=== PATIENT | female | born 1985 | race Caucasian/White ===

== ENCOUNTER 2016-06-14 12:28 | Inpatient (IN) | payer OTHER ==
[~2016-06-14] VITALS: Ht 160 cm; Wt 80.3 kg
[2016-06-14 12:56] VITALS: BP 112/72
[2016-06-14 13:45] LABS: ABSOLUTE BASOPHIL COUNT 0 /CUMM (0.0-0.2); ABSOLUTE EOSINOPHIL COUNT 0.1 /CUMM (0.0-0.7); ABSOLUTE GRANULOCYTE CT 7.9 /CUMM (1.4-6.5); ABSOLUTE MONOCYTE COUNT 0.8 /CUMM (0.10-0.60); BASOPHIL % 0.2 % (0.0-2.0); EOSINOPHIL % 0.8 % (0-5); GRANULOCYTE % 73.7 % (42.2-75.2); HEMATOCRIT 37.2 % (37-47); MEAN CORPUSCULAR HGB 29.4 PG (27.0-31.0); MEAN CORPUSCULAR HGB CONC 33.8 G/DL (33.0-37.0); MEAN CORPUSCULAR VOLUME 86.8 FL (81.0-99.0); MEAN PLATELET VOLUME 8.6 FL (7.4-10.4); PLATELET COUNT 225 /CUMM (130-400); RBC DISTRIBUTION WIDTH 13.1 % (11.5-14.5); RED BLOOD CELL CT 4.29 /CUMM (4.20-5.40); WHITE BLOOD CELL COUNT 10.7 /CUMM (4.8-10.8)
--- NOTE | 2016-06-14 14:46 | History & Physical ---
See Addendum General Information and HPI MD Statement: I have seen and personally examined YOCASTA ACKERMAN and documented this H&P. The patient is a 30 year old female at [40+6] weeks and [] days gestation who presented with a chief complaint of [sent from office for variables on NST]. Source of Information: patient Exam Limitations: no limitations History of Present Illness: 30 year old @ 40+6 weeks presents from office for prolonged monitoring. Pt had been seen at [facility] overnight for labor eval and was 2cm. FHR tracing noted to be Cat 1. Pt was sent home this am and presented to office today at which time BPP 8/8 and NST reactive but variables noted. Pt referred for prolonged monitoring. During evaluation . several moderate variables were audible to 90 BPM x <1min. 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 EENTM: Reports: no symptoms. Cardiovascular: Reports: no symptoms. Respiratory: Reports: no symptoms. GI: Reports: no symptoms. Genitourinary: Reports: no symptoms. Musculoskeletal: Reports: no symptoms. Skin: Reports: no symptoms. Neurological/Psychological: Reports: no symptoms. Hematologic/Endocrine: Reports: no symptoms. Immunologic/Allergic: Reports: no symptoms. All Other Systems: Reviewed and Negative Exam & Diagnostic Data Last 24 Hrs of Vital Signs/I&O Vital Signs Date Time Temp Pulse Resp B/P Pulse O2 O2 Flow FiO2 Ox Delivery Rate 06/14 1256 112/72 Intake & Output 06/14 1600 06/14 0800 06/14 0000 Intake Total Output Total Balance Patient 177 lb Weight Obstetric Exam Wgt Gained During : 50 Pelvimetry: adequate Dilation (cm): 3 Effacement (%): 80 Station: 0 Membranes: intact Fluid: unknown Fundal Height (cm): 40 Multiple Gestation? No Contractions: irreg #1 - FHR Baseline: 140 Category: 1 Estimated Weight: 61% at 37 w Presentation: vtx Patient for Induction? Yes Pereira Score Pereira Score Response Value Cervix Position: mid-position 1 Cervix Consistency: medium 1 Cervix Effacement: 60-70% 2 Cervix Dilation: 3-4 cm 2 Total 6 Physical Exam General Appearance Alert, Oriented X3, Cooperative, No Acute Distress Skin No Rashes, No Breakdown, No Significant Lesion HEENT Atraumatic Cardiovascular Regular Rate Lungs Clear to Auscultation, Normal Air Movement Abdomen No Tenderness, gravid Neurological Normal Gait, Normal Speech, Strength at 5/5 X4 Ext, Normal Tone, Sensation Intact Extremities No Clubbing, No Cyanosis Labs Blood Type & Rh: Apos Antibody Screen: neg Hct/Hgb & Platelets #1: 11.3 35.6 289 Hct/Hgb & Platelets #2: 11.1 35 301 Rubella: imm VDRL #1: neg VDRL #2: neg HbsAg: neg HIV #1: neg HIV #2 neg 1 Hr P 3 Hr PG: nl Group B Strep: neg Initial Ultrasound: 12w Anatomy Ultrasound: nl anatomy Ultrasound for EFW: 61% at 37 w Genetic Testing: NT normal SMA + (FOB neg) alpha thal + (FOB neg) Last 24 Hrs of Labs/Robert: Laboratory Tests 06/14/16 1308: CBC w Diff NO MAN DIFF REQ, RBC 4.29, MCV 86.8, MCH 29.4, RDW 13.1, MPV 8.6, Gran % 73.7, Lymphocytes % 18.3 L, Monocytes % 7.0, Eosinophils % 0.8, Basophils % 0.2, Absolute Granulocytes 7.9 H, Absolute Lymphocytes 2.0, Absolute Monocytes 0.8 H, Absolute Eosinophils 0.1, Absolute Basophils 0, PUBS MCHC 33.8, Urinalysis LIGHT H, Urine Color YEL, Urine Clarity CLEAR, Urine pH 7.0, Ur Specific Hobbs 1.015, Urine Protein NEG, Urine Ketones NEG, Urine Nitrite NEG, Urine Bilirubin NEG, Urine Urobilinogen 0.2, Ur Leukocyte Esterase NEG, Ur Microscopic SEDIMENT EXAMINED, Urine RBC 1-3, Urine WBC RARE, Ur Epithelial Cells FEW, Urine Mucus FEW, Urine Hemoglobin SMALL H, Urine Glucose NEG Assessment/Plan Assessment/Plan: 30 year old at 40+6 weeks. Overall reassuring tracing but intermittent mild - mod variables. Plan induction of labor. R/b/A of pitocin reviewed. Desires to proceed. As Ranked By This Provider Problem List: 1. Core Measures/Miscellaneous Mckenzie Catheter Date In: 06/14/16 Venous Thromboembolism VTE Risk Factors: / VTE Contraindications: No Contraindications VTE Diagnosis: No Beta Duyen Is Beta Duyen a Home Med? No Antibiotics Is Patient on Antibiotics? No Attending MD Review Statement Attending Statement Attending MD Statement: examined this patient, discussed with family, discussed w/nursing
--- NOTE | 2016-06-14 21:05 | PN- OBGYN ---
Surgical Brief Attending Note Brief Attending Note: no complaints per nursing vss [id number], Cat 1 with mild variables. toco: q2-4 cvx on last exam 3/75/-1 to 0 pitocin at 3mu/min a/p 40+6. IOL for Cat1, occ Cat 2 tracing due to variables. Tolerating contractions thus far. will continue pitocin. epidural prn.
--- NOTE | 2016-06-14 21:53 | PN- OBGYN ---
Surgical Brief Attending Note Brief Attending Note: comfortable with epidural FHTs: 130s reactive. +STV, +LTV, mild variables. Overall cat 1 TOCO q 2-4min cvx : no change 3/75/-1 a/p 40+6. IOL for intermittent cat 2 tracing. Continue pitocin.
--- NOTE | 2016-06-15 00:30 | PN- OBGYN ---
Surgical Brief Attending Note Brief Attending Note: notified by RN that patient ruptured spontaneously and thick mec noted. Also, decreased LTV VSSAF FHTs: 130s. Cat 2 tracing. Decreaed variability beginning at 2245. + scalp stim observed with my exam and increased variability noted. now +STV, some LTV with mild variables TOCO: pit at 6mu/min. ctx q 2min Cvx 3-4/90/-1 a/p 41 weeks. IOL . FHR tracing cat 2. plan oxygen, consider decreasing pitocin. Will continue to monitor.
--- NOTE | 2016-06-15 03:30 | PN- OBGYN ---
Surgical Brief Attending Note Brief Attending Note: RN called and notified me of decreased variability and contractions decreased to q 10 min with pit at 3 mu/min. I evaluated patient and cervix was 6/80/0. Pt reports more discomfort with contractions. anesthesia came and gave her a bolus. With my exam +variability noted. contractions are not picking up well and IUPC placed. FHR until that time was 140s and persistent Category 2 tracing. Decreased LTV and +STV with mild variables. Shortly after my exam, oxygen was ordered and patient was repositioned. Deceleration x 3 minutes noted with clarke to 60 bpm. pitocin turned off. FSE applied as FHR gradually still recovering to 140-150s. Discussed tracing with patient and family. FHR now recovered but persistent category 2 tracing. Can continue observation however I suspect will encounter intolerance to labor with continuued induction of labor. Reviewed section with patient and family and they were in agreement with pursuing delivery now. I am in agreement. Reviewed risk of bleeding, infection, injury to other organs or fetus, increased TTN. Questions answered and desires to proceed.
--- NOTE | 2016-06-15 03:37 | Operative Report ---
Operative/Inv Procedure Report Surgery Date: 06/15/16 Name of Procedure: primary low transverse section Pre-Operative Diagnosis: persistent category 2 tracing, progressively worsening, intolerance to labor, thick meconium Post-Operative Diagnosis: same Estimated Blood Loss: 700ml Surgeon/Wind Instrument Repairer: JS ESPINOZA DO Anesthesia: block IV Fluids: 600ml in OR Urine Output: 400 mL Drains: Mckenzie Catheter Specimens: Placenta Complications: None Condition: Good Operative Indication: 30-year-old 2 para 0010 who presented yesterday for prolonged monitoring and induction of labor at 40 weeks and 6 days from the office for variables on her nonstress test. On admission the patient's cervix was 3 cm and 75% effaced and -1 station. heart rate tracing was 130s and category 1. Mild variables and occasional moderate variable was audible. Pitocin induction was started. She reached a maximum of 6 mU/m. She was noted to have a category 2 tracing with decreased long-term variability but short-term variability and intermittent mild variables were noted. At this time due to her frequency of contractions and heart rate tracing, Pitocin was initially turned off and then restarted at half at 3 mU/m. heart rate variability improved but still remained Cat 2. After period of further observation, RN called and notified me of decreased variability and contractions decreased to q 10 min with pit at 3 mu/min. I evaluated patient and cervix was 6/80/0. Pt reports more discomfort with contractions. anesthesia came and gave her a bolus. With my exam +variability noted. contractions are not picking up well and IUPC placed. FHR until that time was 140s and persistent Category 2 tracing. Decreased LTV and + STV with mild variables. Shortly after my exam, oxygen was ordered and patient was repositioned. Deceleration x 3 minutes noted with clarke to 60 bpm. pitocin turned off. FSE applied as FHR gradually still recovering to 140-150s. Discussed tracing with patient and family. FHR now recovered but persistent category 2 tracing and increasing baseline of 150s noted.FHR tracing reviewed with patient and family. Can continue observation however I suspect will encounter intolerance to labor with continuued induction of labor. Reviewed section with patient and family and they were in agreement with pursuing delivery now. Reviewed risk of bleeding, infection, injury to other organs or fetus, increased TTN. Questions answered and desires to proceed. Operative/Procedure Note Note: The patient was taken to the operating room where epidural anesthesia was bolused and found to be adequate. The patient was moved operating room table and prepped and draped in usual sterile fashion. A Pfannenstiel skin incision was made with a scalpel and carried down to the fascia with the scalpel. The fascia was incised and the fascial incision was then extended bilaterally with blunt dissection. Rectus muscles were in midline. Retinae him was identified and entered bluntly. Peritoneal incision was then extended with good visualization of bladder. Bladder blade was inserted. Vesicouterine peritoneum was then identified and entered sharply with Metzenbaum scissors and incision was extended bilaterally with sharp dissection. Bladder flap was created digitally. Bladder blade was then reinserted and the lower uterine segment was then incised in transverse fashion with the scalpel. Uterine incision was extended with blunt dissection. The head was delivered atraumatically. Nuchal cord was noted and reduced. Shoulders and body of the was delivered without difficulty. was bulb suctioned. Good cry was noted. Infant's cord was clamped and cut and was handed to the waiting pediatric team. Cord segment was sent for gases. Placenta was then delivered with gentle traction on the cord. Uterus was then exteriorized and cleared of all clots and debris. Uterine incision was reapproximated with 0 Vicryl in a running locking fashion. A second imbricating suture of 0 Vicryl was then placed. Good hemostasis was noted. Posteriorly uterus was irrigated. She was noted to have a normal-appearing uterus, bilateral fallopian tubes, bilateral ovaries. Uterine incision was reevaluated and hemostatic. Uterus was then placed back into the abdomen and gutters were cleared of all clots and debris. Uterine incision was reevaluated and noted to be hemostatic. Peritoneum was reapproximated with 2-0 Vicryl. Rectus muscle was reapproximated inferiorly with a single [id number] suture of 2-0 Vicryl. Fascia was closed with 0 Vicryl in a running fashion. Subcutaneous tissues were irrigated and multiple small bleeders within the subcutaneous layer was noted. Hemostasis was achieved with the Bovie and a single [id number] suture on the left angle of her subcutaneous incision. Good hemostasis was then noted and skin was closed with keagan. Pressure dressing was applied. All sponge lap needle counts were correct 2 and the patient was taken the recovery area in stable condition. Findings: male at 0404, Apgars 8,9,9 nuchal cord, thick meconium nl uterus and bilateral tubes and ovaries Discharge Disposition: child center
[2016-06-16 08:38] LABS: ABSOLUTE BASOPHIL COUNT 0 /CUMM (0.0-0.2); ABSOLUTE EOSINOPHIL COUNT 0.1 /CUMM (0.0-0.7); ABSOLUTE GRANULOCYTE CT 8.4 /CUMM (1.4-6.5); ABSOLUTE LYMPH COUNT 2.3 /CUMM (1.2-3.4); ABSOLUTE MONOCYTE COUNT 0.6 /CUMM (0.10-0.60); BASOPHIL % 0.3 % (0.0-2.0); EOSINOPHIL % 0.6 % (0-5); GRANULOCYTE % 73.6 % (42.2-75.2); HEMATOCRIT 32.8 % (37-47); MEAN CORPUSCULAR HGB CONC 33.9 G/DL (33.0-37.0); MEAN CORPUSCULAR VOLUME 88.3 FL (81.0-99.0); MEAN PLATELET VOLUME 7.7 FL (7.4-10.4); PLATELET COUNT 219 /CUMM (130-400); RBC DISTRIBUTION WIDTH 13.5 % (11.5-14.5); RED BLOOD CELL CT 3.72 /CUMM (4.20-5.40); WHITE BLOOD CELL COUNT 11.5 /CUMM (4.8-10.8)
--- NOTE | 2016-06-16 12:01 | PN- Post Delivery/GYN ---
Subjective Subjective: DOING WELL OVERALL- PAIN CONTROLLED W/ PO PAIN MEDS- TOLERATING A REGULAR DIET Review of Systems: NEG FOR CARDIAC PULMONARY GI COMPLAINTS Objective Last 24 Hrs of Vital Signs/I&O AFEBRILE VSS Physical Exam General Appearance Alert, Oriented X3, Cooperative, No Acute Distress Skin No Significant Lesion Cardiovascular Regular Rate Lungs Normal Air Movement Abdomen Normal Bowel Sounds, Soft, No Tenderness, No Hepatospenomegaly, UTERUS FIRM MIDLINE 2 FB BELOW UMBILICUS NONTENDER INCISION CLEAN DRY INTACT AVGE LOCHIA Neurological Normal Gait, Normal Speech Extremities No Tenderness/Swelling Reproductive (FEMALE) Normal female genitalia Current Medications: Current Medications Sig/Del Start time Last Medication Dose Route Stop Time Status Admin Acetaminophen 650 MG Q4P PRN 06/15 0500 AC PO Bisacodyl 10 MG DAILY NEEDED PRN 06/15 0500 AC NE Bisacodyl 5 MG DAILY NEEDED PRN 06/15 0500 AC PO Docusate Sodium 100 MG BID 06/16 1000 AC PO Hydromorphone HCl 50 MG Q24H PRN 06/15 0645 DC 06/15 Sodium Chloride 45 ML IV 0728 Hydroxyzine HCl 50 MG AT BEDTIME NEED.. 06/16 0000 AC PO 06/19 0001 Ibuprofen 800 MG Q6P PRN 06/15 0500 AC 06/16 PO 0748 Ketorolac 30 MG Q6P PRN 06/15 0500 DC 06/15 Tromethamine IV 06/16 0459 2245 Lactated Ringer's 1,000 ML Q8H 06/15 0500 AC 06/15 IV 1348 Magnesium Hydroxide 30 ML DAILY NEEDED PRN 06/15 0500 AC PO 06/18 0501 Oxycodone/ 1 TAB Q4P PRN 06/15 0500 AC 06/16 Acetaminophen PO 0748 Oxycodone/ 2 TAB Q4P PRN 06/15 0500 AC Acetaminophen PO Oxytocin 20 UNITS Q8H 06/15 0500 DC Lactated Ringer's 1,000 ML IV 06/15 1259 Senna 187 MG AT BEDTIME NEED.. 06/15 0500 AC PO Simethicone 80 MG Q6P PRN 06/16 0600 AC PO Last 24 Hrs of Labs/Robert: Laboratory Tests 06/16/16 0815: CBC w Diff NO MAN DIFF REQ, RBC 3.72 L, MCV 88.3, MCH 30.0, RDW 13.5, MPV 7.7, Gran % 73.6, Lymphocytes % 20.5, Monocytes % 5.0, Eosinophils % 0.6, Basophils % 0.3, Absolute Granulocytes 8.4 H, Absolute Lymphocytes 2.3, Absolute Monocytes 0.6, Absolute Eosinophils 0.1, Absolute Basophils 0, PUBS MCHC 33.9 Assessment/Plan Assessment/Plan STABLE POD#1 PPD#1 ENCOURAGE AMBULATION PO PAIN MEDS REG DIET Problem List: 1. 2. Non-reassuring cardiotocographic tracing 3. delivery delivered 4. Meconium in amniotic fluid affecting management of mother, delivered Attending MD Review Statement Attending Statement Attending MD Statement: examined this patient, discussed with family, reviewed EMR data (avail), discussed with nursing Attending Assessment/Plan: Hesham COMBS MD
--- NOTE | 2016-06-17 10:12 | PN- Post Delivery/GYN ---
Subjective Subjective: feeling well Review of Systems Constitutional: Reports: no symptoms. Denies: chills, fever. EENTM: Denies: blurred vision, double vision, visual changes. Cardiovascular: Denies: chest pain, palpitations. Respiratory: Denies: cough, short of breath. Gastrointestinal: Denies: diarrhea, distention, nausea, vomiting. Genitourinary: Denies: dysuria. Neurological/Psychological: Denies: anxiety, depressed. Objective Last 24 Hrs of Vital Signs/I&O vss Physical Exam General Appearance Alert, Oriented X3, Cooperative, No Acute Distress Cardiovascular Regular Rate Lungs Clear to Auscultation Abdomen Soft, fundus firm, incision clean and dry Neurological Normal Gait, Normal Speech, Normal Tone Pelvic (FEMALE) lochia serosanganous Current Medications: Current Medications Sig/Del Start time Last Medication Dose Route Stop Time Status Admin Acetaminophen 650 MG Q4P PRN 06/15 0500 AC PO Bisacodyl 10 MG DAILY NEEDED PRN 06/15 0500 AC MN Bisacodyl 5 MG DAILY NEEDED PRN 06/15 0500 AC PO Docusate Sodium 100 MG BID 06/16 1000 AC 06/16 PO 2200 Hydroxyzine HCl 50 MG AT BEDTIME NEED.. 06/16 0000 AC PO 06/19 0001 Ibuprofen 800 MG .STK-MED ONE 06/16 1342 DC PO 06/16 1343 Ibuprofen 800 MG Q6P PRN 06/15 0500 AC 06/17 PO 0254 Ketorolac 30 MG ONCE ONE 06/16 2230 CAN Tromethamine IM 06/16 2231 Lactated Ringer's 1,000 ML Q8H 06/15 0500 AC 06/15 IV 1348 Magnesium Hydroxide 30 ML DAILY NEEDED PRN 06/15 0500 AC PO 06/18 0501 Oxycodone/ 1 TAB Q4P PRN 06/15 0500 AC 06/17 Acetaminophen PO 0758 Oxycodone/ 2 TAB Q4P PRN 06/15 0500 AC Acetaminophen PO Senna 187 MG AT BEDTIME NEED.. 06/15 0500 AC PO Simethicone 80 MG Q6P PRN 06/16 0600 AC PO Assessment/Plan Assessment/Plan pod #2 vss afebrile plan d/c in am tomorrow Problem List: 1. delivery delivered Attending MD Review Statement Attending Statement Attending MD Statement: examined this patient, discussed with family, discussed with nursing
[2016-06-17] MEDS ORDERED: IBUPROFEN800 M1 PO (22:07)
[2016-06-17] MEDS ORDERED: PERCOCET 5-3251 EACH PO (22:07)
--- NOTE | 2016-06-18 11:23 | PN- OBGYN ---
Surgical Brief Attending Note Brief Attending Note: DOING WELL. NO COMPLAINTS. +AMBULATING, VOIDING , TOLERATING PAIN AND PO. VSSAF EXAM PER NURSING FF@U INC C/D/I WITH KAHLIL EXT 2+ PEDAL EDEMA B/L Vital Signs Date Time Temp Pulse Resp B/P Pulse O2 O2 Flow FiO2 Ox Delivery Rate 06/14 1256 112/72 Microbiology Date/Time Procedure - Status Source Growth 06/15 0504 Urine Culture - CAN URINE ROUT Cancelled: DUPLICATE; SPECIMEN NOT RECEIVED IN LABORATORY Orders Procedure Date/time Status Discharge Patient 06/18 UNK Active Vital Signs Date Time Temp Pulse Resp B/P Pulse O2 O2 Flow FiO2 Ox Delivery Rate 06/14 1256 112/72 Microbiology Date/Time Procedure - Status Source Growth 06/15 0504 Urine Culture - CAN URINE ROUT Cancelled: DUPLICATE; SPECIMEN NOT RECEIVED IN LABORATORY Orders Procedure Date/time Status Discharge Patient 06/18 UNK Active A/P POD 3. DOING WELL. PLAN DISCHARGE TO HOME . PRECAUTIONS ADVISED.
--- NOTE | 2016-07-22 11:14 | Discharge Summary ---
Visit Information Visit Dates Admission Date: 06/14/16 Discharge Date: 06/18/16 Hospital Course Course Attending Physician: JS ESPINOZA DO Primary Care Physician: TANIKA GORDON MD Hospital Course: 30-year-old 2 para 0010 who presented for prolonged monitoring and induction of labor at 40 weeks and 6 days from the office for variables on her nonstress test. On admission the patient's cervix was 3 cm and 75% effaced and -1 station. heart rate tracing was 130s and category 1. Mild variables and occasional moderate variable was audible. Pitocin induction was started. She reached a maximum of 6 mU/m. She was noted to have a category 2 tracing with decreased long-term variability but short-term variability and intermittent mild variables were noted. At this time due to her frequency of contractions and heart rate tracing, Pitocin was initially turned off and then restarted at half at 3 mU/m. heart rate variability improved but still remained Cat 2. After period of further observation, RN called and notified me of decreased variability and contractions decreased to q 10 min with pit at 3 mu /min. I evaluated patient and cervix was 6/80/0. Pt reports more discomfort with contractions. anesthesia came and gave her a bolus. With my exam +variability noted. contractions are not picking up well and IUPC placed. FHR until that time was 140s and persistent Category 2 tracing. Decreased LTV and +STV with mild variables. Shortly after my exam, oxygen was ordered and patient was repositioned. Deceleration x 3 minutes noted with clarke to 60 bpm. pitocin turned off. FSE applied as FHR gradually still recovering to 140-150s. Discussed tracing with patient and family. FHR now recovered but persistent category 2 tracing and increasing baseline of 150s noted.FHR tracing reviewed with patient and family. Can continue observation however I suspected that will encounter intolerance to labor with continuued induction of labor. Reviewed section with patient and family and they were in agreement with pursuing delivery now. Reviewed risk of bleeding, infection, injury to other organs or fetus, increased TTN. Questions answered and desired to proceed. The patient was taken operating room and she underwent a low transverse section. The procedure was uncomplicated. The postoperative course was similarly uncomplicated. She was discharged home on postoperative day #3 in good condition. She was emanating, voiding, tolerating pain and by mouth. Her incision was healing appropriately. She was given discharge precautions to return if heavy vaginal bleeding, fever, severe pain. Otherwise she is was instructed to return to the office in 2 and 6 weeks . Complications: None Allergies: Coded Allergies: No Known Allergies (06/14/16) Significant Procedures: Primary low transverse section Disposition Summary Disposition Principal Diagnosis: Term , delivered Additional Diagnosis: Nonreassuring heart tones Discharge Disposition: home or self care Discharge Instructions General Discharge Information Code Status: Full Code Patient's Diet: Regular Patient's Activity: Pelvic rest and no heavy lifting for 6 weeks Follow-Up Instructions/Appts: Return if heavy vaginal bleeding, severe pain, fever. Return to the office in 2 weeks and 6 weeks postop Medications at Discharge Discharge Medications: Start taking the following new medications: Ibuprofen (Ibuprofen) 800 MG TABLET 800 Milligram ORAL EVERY SIX HOURS NEEDED as needed for UTERINE CRAMPING Qty = 30 No Refills Comments: Last Taken:06/18/16 Time:0925AM Oxycodone HCl/Acetaminophen (Percocet 5-325 MG Tablet) 5 MG-325 MG TABLET 1 Tablet ORAL EVERY 4 HOURS NEEDED as needed for PAIN SCALE 4-6 (MODERATE ) Qty = 30 No Refills Comments: Last Taken:06/18/16 Time:0715AM Copies To: JS ESPINOZA DO
== END 2016-06-18 11:50 | DRG 766 ==
LOC: GNO 12:28
PROVIDERS: ADMIT Obstetrics & Gynecology
PROC: 3E033VJ Introduction of Other Hormone into Peripheral Vein, Percutaneous Approach (ICD-10-PCS; 2016-06-14)
PROC: 10D00Z1 Extraction of Products of Conception, Low, Open Approach (ICD-10-PCS; principal; 2016-06-15)
DX: O76 Abnormality in fetal heart rate and rhythm complicating labor and delivery (principal); O69.81X0 Labor and delivery complicated by cord around neck, without compression, not applicable or unspecified; Z3A.40 40 weeks gestation of pregnancy; Z37.0 Single live birth
CPT/HCPCS: GNOP; GNOS; 81001; 87086; 88307; J0690; J1170; J1885; J7120

== ENCOUNTER 2017-08-28 14:19 | Emergency (ER) | payer OTHER ==
[~2017-08-28 14:19] MED LIST: IBUPROFEN800 M1 PO; PERCOCET 5-3251 EACH PO
--- NOTE | 2017-08-28 15:13 | RADIOLOGY REPORT ---
EXAMINATION: XR HAND, RIGHT CLINICAL INFORMATION: Rule out foreign body. Cut by broken glass. COMPARISON: None TECHNIQUE: PA, lateral, and oblique views of the right hand. FINDINGS: No radiopaque foreign bodies are seen within the soft tissues. The osseous structures appear normal. The joint spaces are maintained. IMPRESSION: No radiopaque foreign bodies in the soft tissues.
[2017-08-28 16:55] VITALS: BP 120/83
--- NOTE | 2017-08-28 16:55 | ED GENERAL ADULT ---
History of Present Illness General Chief Complaint: Laceration Procedure Stated Complaint: LAC TO HAND Source: patient Exam Limitations: no limitations Vital Signs & Intake/Output Vital Signs & Intake/Output Vital Signs Date Time Temp Pulse Resp B/P B/P Pulse O2 O2 Flow FiO2 Mean Ox Delivery Rate 08/28 1655 98.4 64 15 120/83 98 Room Air Room Air 08/28 1438 97.0 57 18 125/85 98 Room Air Allergies Coded Allergies: No Known Allergies (06/14/16) Reconcile Medications Ibuprofen 800 MG TABLET 800 MG PO Q6P PRN UTERINE CRAMPING Oxycodone HCl/Acetaminophen (Percocet 5-325 MG Tablet) 5 MG-325 MG TABLET 1 TAB PO Q4P PRN PAIN SCALE 4-6 (MODERATE) Triage Note: 31F SUSTAINED 1CM WELL APPROXIMATED DEEP LAC TO BASE OF RIGHT PALM FROM BROKEN GLASS. UNSURE OF LAST TETANUS SHOT. DECLINES MOTRIN OFFERED. CLEANED WITH PEROXIDE AND BACITRACIN WITH BANDAID APPLIED IN TRIAGE. Triage Nurses Notes Reviewed? yes : No Patient currently breastfeeds: No HPI: OTHERWISE HEALTHY FEMALE WAS CLEANING A GLASS; THE GLASS BROKE AND LACERATED THE BASE OF HER RIGHT PALM; BLEEDING CONTROLLED PRIOR TO ARRIVAL; NO NEUROVASCULAR CHANGES; NO LIMIATION TO MOVEMENT; NO OTHER INJURIES; DENIES INTENIONAL SELF HARM. NO OTHER COMPLAINTS (Boo Stahl MD) Past History Travel History Traveled to [place] past 21 day No Medical History Any Pertinent Medical History? none Neurological: NONE EENT: NONE Cardiovascular: NONE Respiratory: +PPD 1995 Gastrointestinal: NONE Hepatic: NONE Renal: NONE Musculoskeletal: NONE Psychiatric: NONE Endocrine: NONE Blood Disorders: NONE Cancer(s): NONE MALTSTER/Reproductive: NONE Surgical History Surgical History: none Psychosocial History What is your primary language Mongolian Tobacco Use: Never used ETOH Use: denies use Illicit Drug Use: denies illicit drug use Family History Hx Contributory? No (Boo Stahl MD) Review of Systems Review of Systems Constitutional: Reports: no symptoms. EENTM: Reports: no symptoms. Respiratory: Reports: no symptoms. Cardiovascular: Reports: no symptoms. GI: Reports: no symptoms. Musculoskeletal: Reports: no symptoms. Skin: Reports: no symptoms. Denies: see HPI. (Boo Stahl MD) Physical Exam Physical Exam General Appearance: well developed/nourished Head: normal appearance Eyes: Bilateral: normal appearance. Ears, Nose, Throat: normal ENT inspection Neck: full range of motion Respiratory: no respiratory distress Cardiovascular: regular rate/rhythm Gastrointestinal: non-tender Back: normal range of motion Extremities: 1CM VERTICAL LACERATION TO BASE OF RIGHT PALM; DOES NOT [id number] FASCIA; NO TENDON INVOLVEMENT; CLEAN Neurologic/Psych: no motor/sensory deficits Core Measures ACS in differential dx? No CVA/TIA Diagnosis: No Sepsis Present: No Sepsis Focused Exam Completed? No (Boo Stahl MD) Progress Differential Diagnoses I considered the following diagnoses in my evaluation of the patient: LACERATION , TENDOR INJURY, INTENTIONAL SELF HARM, FOREIGN BODY Plan of Care: Current Medications Sig/Del Start time Last Medication Dose Stop Time Status Admin Tetanus/Reduced 0.5 ML ONCE ONE 08/28 1699 CAN Diphtheria/Acell 08/28 170 Pertussis (Adacel) NO FORIEGN BODY ON XR; LACERATION REPAIRED WO COMPLICATION; TDAP GIVEN PROCEDURE NOTE WOUND CLEANSED EXTENSIVELY 1CC OF LIDOCAINE INJECTED 3 4.0 NYLON SUTURES USED FOR GOOD CLOSURE/GOOD COSMETIC EFFECT NO COMPLICATIONS Initial ED EKG: none (Boo Stahl MD) Departure Departure Disposition: HOME OR SELF CARE Condition: Stable Clinical Impression Primary Impression: Laceration of hand Referrals: Suyapa Cade MD (PCP/Family) Departure Forms: Customer Survey General Discharge Information (Boo Stahl MD) PA/GLOBAL CONSUMER SECTOR VICE PRESIDENT Co-Sign Statement Statement: ED Attending supervision documentation- I saw and evaluated the patient. I have also reviewed all the pertinent lab results and diagnostic results. I agree with the findings and the plan of care as documented in the PA's/GLOBAL CONSUMER SECTOR VICE PRESIDENT's documentation. x I have reviewed the ED Record and agree with the PA's/GLOBAL CONSUMER SECTOR VICE PRESIDENT's documentation. [] Additions or exceptions (if any) to the PAs/GLOBAL CONSUMER SECTOR VICE PRESIDENT's note and plan are summarized below: [] (Maxwell BURGESS,Pardeep) Critical Care Note Critical Care Note Critical Care Time: non-applicable (Boo Stahl MD)
== END 2017-08-28 17:02 ==
LOC: ERH 14:19
DX: S61.411A Laceration without foreign body of right hand, initial encounter (principal); W25.XXXA Contact with sharp glass, initial encounter; Y92.9 Unspecified place or not applicable; Y93.89 Activity, other specified
CPT/HCPCS: 73130-RT; 90471; 90714